=== PATIENT | male | born 1990 | race Caucasian/White ===

== ENCOUNTER 2018-03-01 19:23 | Emergency (ER) | payer OTHER ==
[2018-03-01 19:32] VITALS: BP 145/77; PULSE 77; TEMP 98.6; BMI 21.7
--- NOTE | 2018-03-01 19:54 | PDOC ---
History of Present Illness - General Chief Complaint: Pain Stated Complaint: PENILE PAIN Time Seen by Provider: 03/01/18 19:43 History Source: Patient Exam Limitations: No Limitations - History of Present Illness Initial Comments: 03/01/18 20:15 patient came to emergency department for evaluation for persistent penis pain. States was evaluated in an urgent care center and testing for STDs including gonorrhea and chlamydia done but due to the fact those results will not be revealed for 2-3 days patient was treated with azithromycin tablets and an injection presumed to be Rocephin IM. Patient states HIV testing yesterday was negative. Patient states had last homosexual encounter one week ago, which has not particularly aggressive but states has worsening penile shaft pain for the past few days. denies fever, denies any dysuria, denies any noted blood or history of Occurred: reports: just prior to arrival Pain Location: reports: none Method of Injury: Yes: unknown Associated Symptoms (Fall): denies symptoms Past History - Travel Traveled outside of the country in the last 30 days: No Close contact w/someone who was outside of country & ill: No - Past Medical History Allergies/Adverse Reactions: Allergies Allergy/AdvReac Type Severity Reaction Status Date / Time No Known Allergies Allergy Verified 03/01/18 19:33 Home Medications: Ambulatory Orders NK [No Known Home Medication] 03/01/18 - Suicide/Smoking/Psychosocial Hx Smoking History: Never smoked Have you smoked in the past 12 months: No Information on smoking cessation initiated: No Hx Alcohol Use: No Drug/Substance Use Hx: No Review of Systems - Review of Systems Able to Perform ROS?: Yes Is the patient limited [place] proficient: Yes Constitutional: Yes: See HPI. No: Symptoms Reported, Fever, Malaise HEENTM: Yes: See HPI. No: Symptoms Reported Respiratory: Yes: See HPI. No: Symptoms reported, Cough : Yes: Symptoms Reported, See HPI. No: Burning, Dysuria, Discharge, Frequency , Testicular Pain (no swelling or deformity. no ) Musculoskeletal: No: Symptoms Reported Integumentary: Yes: See HPI. No: Symptoms Reported, Bruising, Rash Neurological: Yes: Symptoms reported All Other Systems: Reviewed and Negative *Physical Exam - Vital Signs Last Vital Signs Temp Pulse Resp BP Pulse Ox 98.6 F 77 16 145/77 100 03/01/18 19:30 03/01/18 19:30 11/11/18 19:30 03/01/18 19:30 03/01/18 19:30 - Physical Exam General Appearance: Yes: Nourished, Appropriately Dressed, Mild Distress. No: Apparent Distress HEENT: positive: ANTONIO, Normal ENT Inspection, TMs Normal, Pharynx Normal Neck: positive: Supple. negative: Tender Respiratory/Chest: positive: Lungs Clear Gastrointestinal/Abdominal: positive: Normal Bowel Sounds, Soft. negative: Tender Male Genitalia: positive: normal genitalia, other (shaft with no swelling/ lesions/ deformity). 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, Fully Oriented, Alert, Normal Mood/ Affect, Normal Response, Motor Strength 5/5 *DC/Admit/Observation/Transfer Diagnosis at time of Disposition: Pain in genitalia - Discharge Dispostion Disposition: HOME Condition at time of disposition: Stable Decision to Admit order: No - Referrals Referrals: ON STAFF,NOT [Primary Care Provider] - Chad Arguelles MD [Staff Physician] - - Patient Instructions Additional Instructions: rest, may use hot soaks, hot tub baths for relief avoid any sexual activity until pain resolves follow-up with urology this week may continue using ibuprofen for pain relief - Post Discharge Activity Forms/Work/School Notes: Back to Work
[2018-03-01 19:58] LABS: URINE APPEARANCE SLCLOUDY; URINE BILIRUBIN NEGATIVE (<2.0 mg/dL); URINE COLOR DKYELLOW; URINE GLUCOSE (UA) 3+ (NEGATIVE); URINE KETONE NEGATIVE (NEGATIVE); URINE LEUK ESTERASE NEGATIVE (NEGATIVE); URINE NITRITE NEGATIVE (NEGATIVE); URINE PROTEIN NEGATIVE (NEGATIVE); URINE UROBILINOGEN NEGATIVE mg/dL (0.2-1.0)
== END 2018-03-01 20:58 | disposition home or self-care (01) ==
LOC: JERFT 19:23
DX: N48.89 Other specified disorders of penis (principal)
CPT/HCPCS: 36415; 81003; 82962; 87491; 87591; 99281-25